=== PATIENT | female | born 1990 | race Caucasian/White ===

== ENCOUNTER 2016-10-05 11:56 | Emergency (ER) | payer MEDICAID, OTHER ==
[~2016-10-05] VITALS: Ht 154.9 cm; Wt 63.5 kg
--- NOTE | 2016-10-05 12:00 | NUR ---
PT BROUGHT BACK AN DPLACED IN ER BED 3 TO GOWN FOR EVAL.
[2016-10-05 12:09] VITALS: BP 124/68; PULSE 82; RESP 16; TEMP 98.2; O2SAT 99
--- NOTE | 2016-10-05 12:10 | NUR ---
TRAN RAMOS AT BEDSIDE TO LEON MARCOS.
[2016-10-05] MEDS ORDERED: NACL 0.9% 1,000 ML IV ONE (14:00)
[2016-10-05] MEDS ORDERED: KETOROLAC TROMETHAMINE 30 MG VIAL IVP ONE (14:00)
[2016-10-05] MEDS ORDERED: KETOROLAC TROMETHAMINE 60 MG/2 ML VIAL IM ONE (14:00)
[2016-10-05 14:07] LABS: BASOPHILS # (AUTO) 0.1 K/uL (0.0-0.2); BASOPHILS % (AUTO) 0.7 % (0.0-2.0); EOSINOPHILS # (AUTO) 0.2 K/uL (0.0-0.4); EOSINOPHILS % (AUTO) 3.1 % (0.0-4.0); HEMATOCRIT 38.2 % (36-48); HEMOGLOBIN 13.1 g/dL (12.0-16.0); LYMPHOCYTES # (AUTO) 2.4 K/uL (1.0-5.5); MEAN CORPUSCULAR HEMOGLOBIN 30 pg (27-31); MEAN CORPUSCULAR HGB CONC 34 % (32-36); MEAN CORPUSCULAR VOLUME 87 fL (79.0-98.0); MONOCYTES # (AUTO) 0.3 K/uL (0.0-1.0); MONOCYTES % (AUTO) 4.1 % (1.7-9.3); NEUTROPHILS # (AUTO) 4.6 K/uL (1.8-7.7); NEUTROPHILS % (AUTO) 61.1 % (40.0-70.0); PLATELET COUNT (AUTO) 268 K/uL (130-430); RED BLOOD CELL COUNT(AUTO) 4.38 MIL/uL (4.2-6.2); RED CELL DISTRIBUTION WIDTH 12.1 % (9.0-15.0); WHITE BLOOD COUNT (AUTO) 7.6 K/uL (4.8-10.8)
[2016-10-05 14:17] LABS: CALCIUM 8.8 mg/dL (8.4-11.0); CREATININE 0.7 mg/dL (0.55-1.30); POTASSIUM 4.4 mmol/L (3.5-5.1)
[2016-10-05 14:24] LABS: ALBUMIN 3.3 g/dL (3.4-4.8); TOTAL BILIRUBIN 0.7 mg/dL (0.0-1.0); TOTAL PROTEIN, SERUM 6.7 g/dL (6.4-8.3)
--- NOTE | 2016-10-05 14:30 | NUR ---
pt taken down to xray.
[2016-10-05] MEDS ORDERED: INSULIN REGULAR, HUMAN 10 UNITS/0.1 ML INJ IVP ONE (14:45)
--- NOTE | 2016-10-05 15:15 | NUR ---
RETURNED FORM XRAY. IV STARTED TO RIGHT ARM 20G AND IVF STARTED.
[2016-10-05] MEDS ORDERED: BACITRACIN 1 GM OINT TP ONE ×2 (15:45→15:51)
[2016-10-05] MEDS ORDERED: INSULIN REGULAR, HUMAN 10 UNITS/0.1 ML INJ SUBCUT ONE (15:45)
[2016-10-05 15:50] VITALS: BP 120/69; PULSE 75; RESP 16; TEMP 98.2; O2SAT 98
--- NOTE | 2016-10-05 15:50 | NUR ---
Patient given written and verbal discharge instructions and verbalizes understanding. ER MD Albert discussed with patient the results and treatment provided. Patient in stable condition. ID arm band removed. Rx of motrin given. Patient educated on pain management and to follow up with PMD. Pain Scale 0/10. Opportunity for questions provided and answered.
[2016-10-06] MEDS ORDERED: DILTIAZEM HCL 25 MG/5 ML VIAL ONE (09:57)
[2016-10-06] MEDS ORDERED: NITROGLYCERIN 0.4 MG TAB.SUBL SL ONE (09:57)
[2016-10-06] MEDS ORDERED: ASPIRIN 325 MG TABLET ONE (09:57)
== END 2016-10-05 15:50 | disposition home or self-care (01) ==
LOC: SED 11:56
DX: S83.92XA Sprain of unspecified site of left knee, initial encounter (principal); S43.402A Unspecified sprain of left shoulder joint, initial encounter; S43.401A Unspecified sprain of right shoulder joint, initial encounter; S16.1XXA Strain of muscle, fascia and tendon at neck level, initial encounter; R03.0 Elevated blood-pressure reading, without diagnosis of hypertension; E11.9 Type 2 diabetes mellitus without complications; V49.9XXA Car occupant (driver) (passenger) injured in unspecified traffic accident, initial encounter; Y93.89 Activity, other specified; Y92.89 Other specified places as the place of occurrence of the external cause; Y99.8 Other external cause status
CPT/HCPCS: 36415; 72040; 73030; 73564; 80053; 84702; 85025; 96372; 99285; J1815; J1885; J7030; J3490

== ENCOUNTER 2016-12-26 13:44 | Inpatient (IN) | payer MEDICAID ==
[~2016-12-26] VITALS: Ht 152.4 cm; Wt 64.0 kg
[2016-12-26 13:45] VITALS: BP_SYST 149
[2016-12-26] MEDS ORDERED: NACL 0.9% 1,000 ML IV SCH (14:07)
[2016-12-26] MEDS ORDERED: KETOROLAC TROMETHAMINE 30 MG VIAL IVP ONE (14:15)
[2016-12-26 14:23] LABS: BASOPHILS # (AUTO) 0.1 K/uL (0.0-0.2); BASOPHILS % (AUTO) 1.4 % (0.0-2.0); EOSINOPHILS # (AUTO) 0.2 K/uL (0.0-0.4); EOSINOPHILS % (AUTO) 1.7 % (0.0-4.0); HEMATOCRIT 46.3 % (36-48); HEMOGLOBIN 15.2 g/dL (12.0-16.0); LYMPHOCYTES # (AUTO) 3.1 K/uL (1.0-5.5); LYMPHOCYTES % (AUTO) 34.1 % (20.5-51.5); MEAN CORPUSCULAR HEMOGLOBIN 29 pg (27-31); MEAN CORPUSCULAR HGB CONC 33 % (32-36); MEAN CORPUSCULAR VOLUME 88 fL (79.0-98.0); MONOCYTES % (AUTO) 10.6 % (1.7-9.3); NEUTROPHILS # (AUTO) 4.7 K/uL (1.8-7.7); NEUTROPHILS % (AUTO) 52.2 % (40.0-70.0); PLATELET COUNT (AUTO) 427 K/uL (130-430); RED BLOOD CELL COUNT(AUTO) 5.27 MIL/uL (4.2-6.2); RED CELL DISTRIBUTION WIDTH 11.5 % (9.0-15.0); WHITE BLOOD COUNT (AUTO) 9.1 K/uL (4.8-10.8)
[2016-12-26 14:30] LABS: INR 0.9 (0.8-1.2); PROTHROMBIN TIME 9.7 SECS (9.5-12.5)
[2016-12-26] MEDS ORDERED: ONDANSETRON HCL 4 MG/2 ML VIAL IVP ONE (14:30)
[2016-12-26 14:34] LABS: CALCIUM 9.3 mg/dL (8.4-11.0); CREATININE 1.19 mg/dL (0.55-1.30); POTASSIUM 3.7 mmol/L (3.5-5.1)
[2016-12-26 14:38] LABS: ALBUMIN 3.7 g/dL (3.4-4.8); TOTAL BILIRUBIN 0.4 mg/dL (0.0-1.0); TOTAL PROTEIN, SERUM 8.4 g/dL (6.4-8.3)
[2016-12-26 16:08] LABS: BILIRUBIN,URINE 2+ (NEGATIVE); BLOOD, URINE 3+ (NEGATIVE); CLARITY/URINE HAZY (CLEAR); COLOR,URINE YELLOW (YELLOW); GLUCOSE,URINE 2+ (NEGATIVE); KETONES,URINE 3+ (NEGATIVE); LEUKOCYTE ESTERASE ,URINE NEGATIVE (NEGATIVE); NITRITE, URINE NEGATIVE (NEGATIVE); PROTEIN URINE 2+ (NEGATIVE); UROBILINOGEN,URINE 0.2 (0.2-1.0)
[2016-12-26 17:12] LABS: BACTERIA,URINE RARE /HPF (None Seen); RBC,URINE 20-50 /HPF (0-3); YEAST,URINE Moderate /HPF (None Seen)
[2016-12-26] MEDS ORDERED: NACL 0.9% 1,000 ML IV ONE (17:15)
[2016-12-26] MEDS ORDERED: INSU100V9 SUBCUT (17:35)
[2016-12-26] MEDS ORDERED: INSU10VI4 SUBCUT (17:35)
[2016-12-26] MEDS ORDERED: D5LR 1,000 ML IV SCH ×2 (18:15→22:45)
[2016-12-26] MEDS ORDERED: METOCLOPRAMIDE HCL 10 MG/2 ML VIAL IVP PRN (18:15)
[2016-12-26] MEDS: FAMOTIDINE PF 20 MG/2 ML VIAL IVP SCH ×2 (18:15→20:42)
[2016-12-26] MEDS ORDERED: ONDANSETRON HCL 4 MG/2 ML VIAL IVP PRN (18:15)
[2016-12-26] MEDS ORDERED: INSULIN REGULAR, HUMAN 100 UNITS in NS 99 ML IV PRN ×2 (18:15)
[2016-12-26 19:00] VITALS: BP_SYST 123
[2016-12-26 20:00] VITALS: BP_SYST 132
[2016-12-26] MEDS: MORPHINE 2 MG/ML INJ. SYRINGE IVP PRN (20:45)
[2016-12-26 21:00] VITALS: BP_SYST 101
[2016-12-26 22:00] VITALS: BP_SYST 96
[2016-12-26 23:00] VITALS: BP_SYST 109
[2016-12-26] MEDS: PROMETHAZINE 6.25 MG/ CODEINE 10 MG/ 5 ML PO PRN (23:35)
[2016-12-27] VITALS (12 sets, daily range): BP systolic 94–125
[2016-12-27 06:45] LABS: BASOPHILS % (AUTO) 0.7 % (0.0-2.0); EOSINOPHILS # (AUTO) 0.2 K/uL (0.0-0.4); EOSINOPHILS % (AUTO) 3.8 % (0.0-4.0); HEMATOCRIT 35.6 % (36-48); HEMOGLOBIN 12.2 g/dL (12.0-16.0); LYMPHOCYTES # (AUTO) 2.6 K/uL (1.0-5.5); LYMPHOCYTES % (AUTO) 43.5 % (20.5-51.5); MEAN CORPUSCULAR HEMOGLOBIN 30 pg (27-31); MEAN CORPUSCULAR HGB CONC 34 % (32-36); MEAN CORPUSCULAR VOLUME 88 fL (79.0-98.0); MONOCYTES # (AUTO) 0.8 K/uL (0.0-1.0); MONOCYTES % (AUTO) 13.7 % (1.7-9.3); NEUTROPHILS # (AUTO) 2.3 K/uL (1.8-7.7); NEUTROPHILS % (AUTO) 38.3 % (40.0-70.0); PLATELET COUNT (AUTO) 271 K/uL (130-430); RED BLOOD CELL COUNT(AUTO) 4.05 MIL/uL (4.2-6.2); RED CELL DISTRIBUTION WIDTH 11.6 % (9.0-15.0)
[2016-12-27 06:55] LABS: WHITE BLOOD COUNT (AUTO) 5.9 K/uL (4.8-10.8)
[2016-12-27 08:08] LABS: ANION GAP 10 (5-15); CALCIUM 8.2 mg/dL (8.4-11.0); CHLORIDE 109 mmol/L (98-107); GLUCOSE 160 mg/dL (70-99); SODIUM SERUM 138 mmol/L (136-145); UREA NITROGEN, BLOOD 5 mg/dL (8-21)
[2016-12-27 08:09] LABS: ALANINE AMINOTRANSFERASE 10 U/L (12-78); ALBUMIN 2.6 g/dL (3.4-4.8); ASPARTATE AMINOTRANSFERASE 7 U/L (10-37); CREATININE 0.68 mg/dL (0.55-1.30); GFR AFRICAN AMERICAN 133 mL/min (>90); PHOSPHORUS 1.8 mg/dL (2.7-4.5); TOTAL BILIRUBIN 0.3 mg/dL (0.0-1.0); TOTAL PROTEIN, SERUM 5.9 g/dL (6.4-8.3)
[2016-12-27 08:13] LABS: POTASSIUM 2.8 mmol/L (3.5-5.1)
[2016-12-27 08:16] LABS: ACETONE, SERUM TRACE (NEGATIVE)
[2016-12-27] MEDS: MORPHINE 2 MG/ML INJ. SYRINGE IVP PRN ×2 (09:07→19:56)
[2016-12-27] MEDS ORDERED: K PHOS 30 MM in NS 250 ML IV ONE (09:30)
[2016-12-27] MEDS: FAMOTIDINE PF 20 MG/2 ML VIAL IVP SCH ×2 (09:54→19:55)
[2016-12-27] MEDS: PROMETHAZINE 6.25 MG/ CODEINE 10 MG/ 5 ML PO PRN ×2 (09:57→19:56)
[2016-12-27] MEDS ORDERED: NACL 0.9% 1,000 ML IV SCH (10:30)
[2016-12-27] MEDS: INSULIN REGULAR, HUMAN 100 UNITS/ML, 10 ML VIAL (novoLIN R) SUBCUT PRN ×4 (12:02→21:40)
[2016-12-27] MEDS ORDERED: ONDANSETRON 4 MG ODT TAB PO PRN (21:00)
[2016-12-27] MEDS ORDERED: traMADol HCL HCL 50 MG TABLET (ULTRAM) PO PRN (21:00)
[2016-12-27] MEDS ORDERED: METOCLOPRAMIDE HCL 10 MG TABLET PO PRN (21:00)
[2016-12-27] MEDS: FAMOTIDINE 20 MG TABLET PO SCH (21:33)
[2016-12-27] MEDS: traMADol HCL HCL 50 MG TABLET (ULTRAM) PO PRN (21:34)
[2016-12-28] VITALS (7 sets, daily range): BP systolic 107–132
[2016-12-28] MEDS: INSULIN REGULAR, HUMAN 100 UNITS/ML, 10 ML VIAL (novoLIN R) SUBCUT PRN ×3 (02:33→18:02)
[2016-12-28] MEDS: PROMETHAZINE 6.25 MG/ CODEINE 10 MG/ 5 ML PO PRN ×2 (03:20→21:05)
[2016-12-28 06:31] LABS: BASOPHILS # (AUTO) 0.1 K/uL (0.0-0.2); BASOPHILS % (AUTO) 0.7 % (0.0-2.0); EOSINOPHILS # (AUTO) 0.3 K/uL (0.0-0.4); EOSINOPHILS % (AUTO) 4.4 % (0.0-4.0); HEMATOCRIT 36.1 % (36-48); HEMOGLOBIN 12.3 g/dL (12.0-16.0); LYMPHOCYTES # (AUTO) 3.4 K/uL (1.0-5.5); LYMPHOCYTES % (AUTO) 46.8 % (20.5-51.5); MEAN CORPUSCULAR HEMOGLOBIN 30 pg (27-31); MEAN CORPUSCULAR HGB CONC 34 % (32-36); MEAN CORPUSCULAR VOLUME 88 fL (79.0-98.0); MONOCYTES # (AUTO) 0.8 K/uL (0.0-1.0); MONOCYTES % (AUTO) 11.4 % (1.7-9.3); NEUTROPHILS # (AUTO) 2.6 K/uL (1.8-7.7); NEUTROPHILS % (AUTO) 36.7 % (40.0-70.0); PLATELET COUNT (AUTO) 283 K/uL (130-430); RED BLOOD CELL COUNT(AUTO) 4.09 MIL/uL (4.2-6.2); RED CELL DISTRIBUTION WIDTH 11.7 % (9.0-15.0); WHITE BLOOD COUNT (AUTO) 7.2 K/uL (4.8-10.8)
[2016-12-28 06:46] LABS: ALBUMIN 2.7 g/dL (3.4-4.8); CALCIUM 8.4 mg/dL (8.4-11.0); CREATININE 0.67 mg/dL (0.55-1.30); TOTAL BILIRUBIN 0.3 mg/dL (0.0-1.0)
[2016-12-28 06:47] LABS: PHOSPHORUS 3.2 mg/dL (2.7-4.5)
[2016-12-28] MEDS: FAMOTIDINE 20 MG TABLET PO SCH ×2 (08:53→21:05)
[2016-12-28] MEDS: traMADol HCL HCL 50 MG TABLET (ULTRAM) PO PRN (11:12)
[2016-12-28] MEDS ORDERED: DEXTROSE 50% JECT 50 ML DISP.SYRIN IVP PRN (12:00)
[2016-12-28] MEDS ORDERED: MAGNESIUM CITRATE 300 ML ORAL SOLUTION PO ONE (12:00)
[2016-12-28] MEDS ORDERED: POTASSIUM CHLORIDE 20 MEQ TAB.PRT.SR PO ONE (12:00)
[2016-12-28] MEDS: DOCUSATE SODIUM 250 MG CAPSULE PO SCH ×2 (12:15→21:05)
[2016-12-28] MEDS ORDERED: BISACODYL 5 MG TABLET.DR (DULCOLAX) PO ONE (18:45)
[2016-12-28] MEDS: POTASSIUM CHLORIDE 20 MEQ TAB.PRT.SR PO SCH (21:05)
[2016-12-29] MEDS: PROMETHAZINE 6.25 MG/ CODEINE 10 MG/ 5 ML PO PRN ×2 (03:44→11:00)
[2016-12-29 04:17] VITALS: BP_SYST 100
[2016-12-29] MEDS: INSULIN REGULAR, HUMAN 100 UNITS/ML, 10 ML VIAL (novoLIN R) SUBCUT PRN ×2 (05:51→11:28)
[2016-12-29 06:43] LABS: CALCIUM 8.4 mg/dL (8.4-11.0); CHLORIDE 103 mmol/L (98-107); CHOLESTEROL 199 mg/dL (<200); CREATININE 0.58 mg/dL (0.55-1.30); GLUCOSE 220 mg/dL (70-99); HDL CHOLESTEROL 38 mg/dL (>55); LDL CHOLESTEROL 127 mg/dL (<100); POTASSIUM 3.7 mmol/L (3.5-5.1); SODIUM SERUM 135 mmol/L (136-145); TRIGLYCERIDES 155 mg/dL (30-150); UREA NITROGEN, BLOOD 5 mg/dL (8-21)
[2016-12-29 06:52] LABS: ANION GAP < 3 (5-15); GFR AFRICAN AMERICAN 159 mL/min (>90)
[2016-12-29 08:29] VITALS: BP_SYST 118
[2016-12-29] MEDS: DOCUSATE SODIUM 250 MG CAPSULE PO SCH (09:00)
[2016-12-29] MEDS: FAMOTIDINE 20 MG TABLET PO SCH (09:05)
[2016-12-29] MEDS: POTASSIUM CHLORIDE 20 MEQ TAB.PRT.SR PO SCH (09:05)
[2016-12-29 11:51] VITALS: BP_SYST 118
[2016-12-29 12:45] VITALS: BP_SYST 109
== END 2016-12-29 12:07 | disposition home or self-care (01) | DRG 420 ==
LOC: SED 13:44 → SIC 17:25 → SMU 12-27 13:17
PROVIDERS: ADMIT Internal Medicine; ATTEND Internal Medicine
DX: E13.10 Other specified diabetes mellitus with ketoacidosis without coma (principal); E83.39 Other disorders of phosphorus metabolism; B34.9 Viral infection, unspecified; K52.9 Noninfective gastroenteritis and colitis, unspecified; E87.6 Hypokalemia; Z79.4 Long term (current) use of insulin
CPT/HCPCS: 36415; 71010; 80048; 80053; 80061; 81000-TC; 82009-TC; 82962; 83036; 83605; 83735-TC; 84100-TC; 84703; 85025; 85610-TC; 85730-TC; 87040-TC; 87081; 87086; 93005; 96361; 96374; 96375; 99291; J1815; J1885; J2270; J2405; J3490; J7030; J7050; J7060; J7120

== ENCOUNTER 2017-04-04 15:58 | Emergency (ER) | payer MEDICAID ==
[~2017-04-04] VITALS: Ht 160 cm; Wt 65.8 kg
[2017-04-04 15:58] VITALS: BP_SYST 126
[~2017-04-04 15:58] MED LIST: INSU100V9 SUBCUT; INSU10VI4 SUBCUT
[2017-04-04] MEDS ORDERED: INSULIN REGULAR, HUMAN 10 UNITS/0.1 ML INJ SUBCUT ONE (17:15)
[2017-04-04] MEDS ORDERED: NACL 0.9% 1,000 ML IV ONE (17:15)
[2017-04-04 17:27] LABS: BASOPHILS # (AUTO) 0.1 K/uL (0.0-0.2); BASOPHILS % (AUTO) 0.9 % (0.0-2.0); EOSINOPHILS # (AUTO) 0.1 K/uL (0.0-0.4); HEMATOCRIT 39.1 % (36-48); HEMOGLOBIN 13.1 g/dL (12.0-16.0); LYMPHOCYTES # (AUTO) 2.2 K/uL (1.0-5.5); LYMPHOCYTES % (AUTO) 34.3 % (20.5-51.5); MEAN CORPUSCULAR HEMOGLOBIN 30 pg (27-31); MEAN CORPUSCULAR HGB CONC 34 % (32-36); MEAN CORPUSCULAR VOLUME 88 fL (79.0-98.0); MONOCYTES # (AUTO) 0.3 K/uL (0.0-1.0); MONOCYTES % (AUTO) 4.5 % (1.7-9.3); NEUTROPHILS # (AUTO) 3.8 K/uL (1.8-7.7); NEUTROPHILS % (AUTO) 58.3 % (40.0-70.0); PLATELET COUNT (AUTO) 250 K/uL (130-430); RED BLOOD CELL COUNT(AUTO) 4.43 MIL/uL (4.2-6.2); RED CELL DISTRIBUTION WIDTH 11.3 % (9.0-15.0); WHITE BLOOD COUNT (AUTO) 6.5 K/uL (4.8-10.8)
[2017-04-04 17:36] LABS: ANION GAP 3 (5-15); CALCIUM 8.4 mg/dL (8.4-11.0); CHLORIDE 101 mmol/L (98-107); CREATININE 0.92 mg/dL (0.55-1.30); POTASSIUM 4.7 mmol/L (3.5-5.1); SODIUM SERUM 134 mmol/L (136-145); UREA NITROGEN, BLOOD 9 mg/dL (8-21)
[2017-04-04 17:37] LABS: GFR AFRICAN AMERICAN 93 mL/min (>90)
[2017-04-04 17:39] LABS: ACETONE, SERUM NEGATIVE (NEGATIVE)
[2017-04-04 17:41] LABS: GLUCOSE 500 mg/dL (70-99)
[2017-04-04 17:49] LABS: TOTAL BILIRUBIN 0.5 mg/dL (0.0-1.0)
[2017-04-04 17:50] LABS: ALANINE AMINOTRANSFERASE 12 U/L (12-78); ALBUMIN 3.1 g/dL (3.4-4.8); ASPARTATE AMINOTRANSFERASE 12 U/L (10-37)
[2017-04-04 18:44] VITALS: BP_SYST 126
== END 2017-04-04 18:44 | disposition home or self-care (01) ==
LOC: SED 15:58
DX: R07.89 Other chest pain (principal); E10.8 Type 1 diabetes mellitus with unspecified complications; Z79.4 Long term (current) use of insulin
CPT/HCPCS: 36415; 80053; 82009; 82962; 83880; 84484; 85025; 93005; 96361; 96374; 99284; J1815; J7030